=== PATIENT | male | born 1990 | race American Indian/Alaskan Native ===

== ENCOUNTER 2017-06-28 14:31 | Emergency (ER) | payer BC ==
--- NOTE | 2017-06-28 16:55 | Emergency Department Report ---
ED Laceration HPI - HPI Chief Complaint: Laceration/Recheck/Suture Stated Complaint: LEFT FINGER LACERATION Time Seen by Provider: 06/28/17 16:54 Occurred When: Today Location: Upper Extremity (left index finger) Severity: moderate (5/10 ) Tetanus Status: Not up to Date Laceration Symptoms: Yes Pain ( Lt index finger with laceration), No Foreign Body Sensation, No Numbness, No Weakness Other History: Patient with laceration to left index finger that happened 1 hour prior to coming to emergency room. He said he was at work and he accidentally cut himself with a knife. 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 He said that it was bleeding a lot at first but it subsided. Patient said he put peroxide and pressure to the area. Reports pain to tip of left index finger at 5 out of 10 and aching. Denies any numbness or tingling. Denies any radiation of pain proximally. Denies any weakness. ED Review of Systems ROS: Stated complaint: LEFT FINGER LACERATION Other details as noted in HPI Comment: All other systems reviewed and negative Constitutional: no symptoms reported ENT: denies: throat pain, congestion Respiratory: no symptoms reported Cardiovascular: denies: chest pain, palpitations, dyspnea on exertion, orthopnea , edema, syncope, paroxysmal nocturnal dyspnea Gastrointestinal: denies: abdominal pain, nausea, vomiting, diarrhea Musculoskeletal: arthralgia. denies: back pain, joint swelling, myalgia Skin: other (duration 2 left index finger.) Neurological: denies: headache, weakness, numbness, paresthesias, confusion, abnormal gait, vertigo ED Past Medical Hx - Past Medical History Previous Medical History?: No - Surgical History Past Surgical History?: Yes Additional Surgical History: Tonsilectomy - Family History Family history: hypertension - Social History Smoking Status: Never Smoker Substance Use Type: None - Medications Home Medications: Home Medications Medication Instructions Recorded Confirmed Last Taken Type Cephalexin [Keflex] 500 mg PO Q8HR 5 Days #15 cap 06/28/17 Unknown Rx Ibuprofen [Motrin] 600 mg PO Q8H PRN 5 Days #15 tablet 06/28/17 Unknown Rx Laceration Physical Exam - Exam General: Vital signs noted. No distress. Alert and acting appropriately. 27-year-old male well-nourished well-developed in no acute distress. Neck: Nontender to palpate to neck., Full range of motion to neck. Neck is supple. No C-spine tenderness. Extremity: No clubbing, cyanosis or edema to extremities. S2 radial and ulnar pulses bilaterally. No neurovascular compromise. Capillary refill is less than 3 seconds. Patient would laceration to tuft at left index finger. Restriction in movement to fingers on left hand. See documentation under skin for details. Lungs: Clear to auscultate bilaterally, no rhonchi wheezes or rales CV: S1, S2. Regular rate and rhythm. Negative murmur Psych: Normal mood and behavior Wound Length (cm): 1 (Partially avulsed, distal tuft of finger. No bony tenderness) Laceration Location: Upper Extremity (left index finger at tuft. Tender to palpate. No bony tenderness. Laceration with partial avulsed skin.) Laceration Exam: Yes Normal Distal CMS, No Foreign Body, No Exposed Tendon, Vessel, or Nerve, No Tendon Injury ED Course Vital Signs 06/28/17 14:37 Temperature 98.2 F Pulse Rate 71 Respiratory 18 Rate Blood Pressure 156/103 O2 Sat by Pulse 99 Oximetry Vital Signs 06/28/17 06/28/17 14:37 19:03 Temperature 98.2 F Pulse Rate 71 66 Respiratory 18 20 Rate Blood Pressure 156/103 Blood Pressure 145/89 [Right] O2 Sat by Pulse 99 96 Oximetry - Reevaluation(s) Reevaluation #1: 06/28/17 19:06 Patient received Lucas 7.5/325 mg one tablet by mouth in emergency room. Pain has been controlled. Please refer to procedure note for laceration repair and digital block. Patient tetanus shot is up-to-date. - Laceration /Wound Repair Left Distal Palm Finger Wound Location: lower extremity (tuft of left index finger laceration.) Wound Length (cm): 1 Wound's Depth, Shape: superficial, irregular, flap Wound Explored: clean Irrigated w/ Saline (ccs): 250 (soaked in iodine and normal saline prior to irrigation) Betadine Prep?: Yes Anesthesia: 0.5% Sensorcaine Volume Anesthetic (ccs): 2 Wound Debrided: moderate Wound Repaired With: sutures Suture Size/Type: 3:0, proline Number of Sutures: 10 Layer Closure?: No Sterile Dressing Applied?: Yes (Bulky dry dressing) Progress: Bulky sterile dressing placed to finger. - Nerve Block Consent Obtained: verbal consent Time Out Performed: Yes Local Anesthetic Used: Marcaine 0.5% (0.5% Marcaine) Amount of anesthesia used: 2 Side: left (left index finger) Nerve Blocks: digital Procedure Successful: Yes Complications: none Patient Tolerated Procedure: well ED Medical Decision Making - Radiology Data Radiology results: report reviewed Strain left hand reveal no acute fracture or dislocation. No radiopaque foreign body noted at laceration site to tuft of left index finger. - Medical Decision Making ED course: Status post laceration to left index finger while cutting onions at work. He presented to the emergency room one hour after accident. Reports bleeding and pain to tuft of left index finger along with laceration. Physical findings for partially avulsed laceration to tuft of left index finger. See procedure note on laceration repair for details and also for a digital block. She was given Lucas 7.5/325 mg by mouth for finger pain and reported pain is now 0 out of 10 after blocking. I stressed the patient that he will need to keep the bulky dry dressing on for 24 hours and then remove. I asked him not to do any aggressive movement with his injured finger as this will cause laceration are sutured line to become dehisced. She voiced understanding of discharge instructions and diagnoses the treatment plan and to follow up in 7- 10 days to have stitches removed. He reports that his tetanus shot was up-to- date. Patient discharged home with family with prescription for Keflex and Motrin. He also was given information on is x-ray which was negative for any foreign body or bony abnormality. Critical care attestation.: If time is entered above; I have spent that time in minutes in the direct care of this critically ill patient, excluding procedure time. ED Disposition Clinical Impression: Finger pain, left Laceration of left index finger w/o foreign body w/o damage to nail Qualifiers: Encounter type: initial encounter Qualified Code(s): S61.211A - Laceration without foreign body of left index finger without damage to nail, initial encounter Disposition: TO HOME OR SELFCARE Is pt being admited?: No Does the pt Need Aspirin: No Condition: Stable Instructions: Suture Care (ED), Finger Laceration (ED), Arthralgia (ED) Additional Instructions: Take antibiotic as prescribed Follow-up with your primary care physician in 3 days Keep affected area clean and dry. Please return to the emergency room in 7-10 days to have stitches removed from left index finger Followed discharge instruction on laceration and suture care Please return to emergency room if you develop increasing redness, streaking, fever, difficulty moving injured finger, drainage from injured finger and pain radiating to the left hand, wrist, forearm and arm. Prescriptions: Cephalexin [Keflex] 500 mg PO Q8HR 5 Days #15 cap Ibuprofen [Motrin] 600 mg PO Q8H PRN 5 Days #15 tablet PRN Reason: Pain Referrals: PRIMARY CARE, [Primary Care Provider] - 3-5 Days return to, emergency department [Other] - 7-10 days Forms: Work/School Release Form(ED)
[2017-06-28] MEDS ORDERED: NORCO 7.5/325 PO ONE (16:56)
[2017-06-28] MEDS ORDERED: NACL 0.9% IR ONE (16:56)
[2017-06-28] MEDS ORDERED: MARCAINE 0.5% INFILTRATI ONE (18:33)
--- NOTE | 2017-06-28 18:38 | XRay Report ---
FINAL REPORT EXAM: XR HAND 3+V LT HISTORY: Left hand at finger avulvion laceration with pain TECHNIQUE: 3 views of the left hand PRIORS: None. FINDINGS: Nonspecific small smoothly marginated ossicle is noted adjacent to the middle finger MCP joint. This may be developmental variation or reflect old trauma. Soft tissue injury with deformity suggested at distal tip of index finger. Adjacent bones appear intact. No evidence of radiopaque foreign body. There is no definite radiographic evidence of acute fracture or dislocation. No evidence of osseous lesion. Joint spaces are maintained. There is no evidence of significant arthrosis. IMPRESSION: No acute skeletal pathology
[2017-06-28 19:03] VITALS: BP 145/89
== END 2017-06-28 19:39 | disposition home or self-care (01) ==
LOC: ED 14:31
DX: S61.211A Laceration without foreign body of left index finger without damage to nail, initial encounter (principal); W26.0XXA Contact with knife, initial encounter; Y93.89 Activity, other specified; Y99.8 Other external cause status; Y92.89 Other specified places as the place of occurrence of the external cause